=== PATIENT | female | born 1985 ===

== ENCOUNTER 2022-10-24 09:56 | Outpatient (CLI) | payer SELFPAY ==
--- NOTE | 2022-10-24 10:15 | CRLHL7_ITS ---
For Patients: As a result of the Century Cures Act, medical imaging exams and procedure reports are released immediately into your electronic medical record. You may view this report before your referring provider. If you have questions, please contact your health care provider. INDICATION: First trimester scan, establish dates. COMPARISON: None. TECHNIQUE: Real-time ramírez-scale imaging of the pelvis was performed. FINDINGS: Sonographic imaging demonstrates a single living intrauterine gestation. The embryo demonstrates a regular cardiac rate measuring 179 beats per minute. The embryo`s crown-rump length measurement of 2.7 cm corresponds to a gestational age of 9 weeks 4 days with a sonographic due date of 05/25/2023. There is a normal-appearing yolk sac. There are no gross abnormalities noted within the embryo at this early state of development. The gestational sac has a normal appearance. There is a 1.5 x 0.7 x 1.9 cm perigestational hemorrhage. The amount of fluid within the sac appears appropriate for gestational age. The cervix is closed. Anterior uterine fibroid measuring 2.9 x 2.1 x 3.2 cm. The ovaries are of normal size. Corpus luteal cyst right ovary. There are no suspicious fluid collections noted in the cul-de-sac. IMPRESSION: Single living intrauterine with sonographic gestational age 9 weeks 4 days and sonographic due date 05/25/2023. Left-sided subchorionic hemorrhage measuring 1.5 x 0.7 x 1.9 cm. Anterior uterine fibroid measuring 2.9 x 2.1 x 3.2 cm. Dictated by Chalino Park MD @ 10/24/2022 11:13:40 AM (Electronically Signed)
== END 2022-10-24 09:57 | disposition home or self-care (01) ==
LOC: US 09:57
PROVIDERS: Visit Provider Advanced Practice Midwife
DX: Z34.91 Encounter for supervision of normal pregnancy, unspecified, first trimester (principal); Z3A.09 9 weeks gestation of pregnancy
CPT/HCPCS: 76817

== ENCOUNTER 2022-10-24 11:32 | Outpatient (CLI) | payer SELFPAY | END 2022-10-24 11:33 | disposition home or self-care (01) | PROVIDERS: Visit Provider Advanced Practice Midwife | DX: Z34.91 Encounter for supervision of normal pregnancy, unspecified, first trimester (principal) | CPT/HCPCS: 86592; 86703; 86762; 86787; 86803; 86850; 86900; 86901; 87086; 87340 ==